=== PATIENT | female | born 1985 ===

== ENCOUNTER 2017-05-25 02:14 | Emergency (ER) | payer OTHER ==
[2017-05-25 02:27] VITALS: BP 121/58; PULSE 80; RESP 18; TEMP 98.2; O2SAT 99; BMI 25.4
[2017-05-25] MEDS ORDERED: DiphenhydrAMINE 50 mg/ml Inj IVP STA (02:27)
--- NOTE | 2017-05-25 02:35 | ED PDOC ---
HPI: Allergic Reaction Time Seen by Provider: 05/25/17 02:23 Chief Complaint (Nursing): Allergic Reaction Chief Complaint (Provider): Allergic Reaction History Per: Patient History/Exam Limitations: no limitations Onset/Duration Of Symptoms: Hrs (x9) Current Symptoms Are (Timing): Still Present Possible Cause: Food Associated Symptoms: Skin Rash. denies: Dyspnea, Chest Pain Home/EMS Treatment: Benadryl Additional Complaint(s): 31 year old female presents to ED with complaints of an allergic reaction x9 hours and has no past medical history or known allergies. Patient states she had red snapper for lunch and subsequently developed a diffuse body gene. Notes that she took 2 Benadryl (1 immediately after onset and 1 PAINTER BARREL) with no mitigation of symptoms. (-) Shortness of breath, chest pain, or abdominal pain. PCP: None Past Medical History Reviewed: Historical Data, Nursing Documentation, Vital Signs Vital Signs: Last Vital Signs Temp 98.2 F 05/25/17 02:25 Pulse 80 05/25/17 02:25 Resp 18 05/25/17 02:25 BP 121/58 L 05/25/17 02:25 Pulse Ox 99 05/25/17 02:25 - Medical History PMH: No Chronic Diseases - Surgical History Surgical History: No Surg Hx - Family History Family History: States: No Known Family Hx - Home Medications Home Medications: Ambulatory Orders Medication Instructions Recorded DiphenhydrAMINE [Benadryl] 25 mg PO PRN PRN 05/25/17 Loratadine 10 mg PO DAILY #12 tablet 05/25/17 predniSONE [predniSONE Tab] 20 mg PO DAILY #3 tab 05/25/17 - Allergies Allergies/Adverse Reactions: Allergies Allergy/AdvReac Type Severity Reaction Status Date / Time No Known Allergies Allergy Verified 05/25/17 02:25 Review of Systems ROS Statement: Except As Marked, All Systems Reviewed And Found Negative Cardiovascular: Negative for: Chest Pain Respiratory: Negative for: Shortness of Breath Gastrointestinal: Negative for: Abdominal Pain Skin: Positive for: Rash (diffuse rash) Physical Exam - Reviewed Nursing Documentation Reviewed: Yes Vital Signs Reviewed: Yes - Physical Exam Appears: Positive for: Non-toxic, No Acute Distress Skin: Positive for: Warm, Dry, Rash (diffuse urticaria on neck, chest, abdomen, back, and bilateral upper/lower extremities) Eye Exam: Positive for: Normal appearance ENT: Positive for: Normal ENT Inspection. Negative for: Tonsillar Swelling Neck: Positive for: Normal Cardiovascular/Chest: Positive for: Regular Rate, Rhythm. Negative for: Bradycardia Respiratory: Positive for: Normal Breath Sounds. Negative for: Respiratory Distress Gastrointestinal/Abdominal: Positive for: Soft. Negative for: Tenderness Extremity: Positive for: Normal ROM. Negative for: Deformity Neurologic/Psych: Positive for: Alert, Oriented. Negative for: Motor/Sensory Deficits - ECG O2 Sat by Pulse Oximetry: 99 (RA) Pulse Ox Interpretation: Normal Disposition - Clinical Impression Clinical Impression: Allergic reaction - Disposition Referrals: [facility] [Outside] Disposition Time: 03:54 Condition: STABLE Prescriptions: Loratadine 10 mg PO DAILY #12 tablet predniSONE [predniSONE Tab] 20 mg PO DAILY #3 tab Instructions: General Allergic Reaction (ED), Urticaria (GEN) Forms: [employer] (German) Medical Decision Making Medical Decision Makin Initial impression: urticaria and allergic reaction Initial plan: * Benadryl 50mg IVP * Pepcid 20mg IVP * Solumedrol 125mg IVP * Re-evaluation * * Reassess * [id number]: feeling better, rash has resolved, upon re-evaluation, patient is stable for discharge home Scribe Attestation: Documented by Angela Loera acting as a scribe for Mode Molina MD. Scribe Attestation: All medical record entries made by the Scribe were at my direction and personally dictated by me. I have reviewed the chart and agree that the record accurately reflects my personal performance of the history, physical exam, medical decision making, and the department course for this patient. I have also personally directed, reviewed, and agree with the discharge instructions and disposition.
== END 2017-05-25 04:02 | disposition home or self-care (01) ==
LOC: H.ER 02:14
DX: T78.40XA Allergy, unspecified, initial encounter (principal)
CPT/HCPCS: 96374; 96375; 99282; J1200; J2930

== ENCOUNTER 2018-09-13 23:20 | Emergency (ER) | payer OTHER ==
[2018-09-13 23:21] VITALS: BMI 25.4
[2018-09-13 23:28] VITALS: TEMP 98.4; O2SAT 100
--- NOTE | 2018-09-14 02:10 | ED PDOC ---
HPI: Female Pain Time Seen by Provider: 09/14/18 01:04 Chief Complaint (Nursing): Female Genitourinary Chief Complaint (Provider): : vaginal bleeding History Per: Patient History/Exam Limitations: no limitations Onset/Duration Of Symptoms: Hrs Current Symptoms Are (Timing): Still Present Quality Of Discomfort: "Pain" Additional Complaint(s): 33 y/o female, approximately 8 weeks gestation, presents for evaluation of vaginal bleeding x 1 day. Associated left lower abdominal pain. Denies fever, nausea/vomiting, chest pain, shortness of breath, palpitations, urinary symptoms. Abnormal Vaginal Bleeding: Yes Last Menstral Period: 07/25/18 : 2 Para: 1 Miscarriage: 0 Past Medical History Reviewed: Historical Data, Nursing Documentation, Vital Signs Vital Signs: Last Vital Signs Temp 98.4 F 09/13/18 23:26 Pulse 77 09/13/18 23:26 Resp 16 09/13/18 23:26 BP 111/67 09/13/18 23:26 Pulse Ox 100 09/13/18 23:26 - Medical History PMH: No Chronic Diseases - Surgical History Surgical History: - Family History Family History: States: No Known Family Hx - Living Arrangements Living Arrangements: With Family - Home Medications Home Medications: Ambulatory Orders Medication Instructions Recorded DiphenhydrAMINE [Benadryl] 25 mg PO PRN PRN 05/25/17 Loratadine 10 mg PO DAILY #12 tablet 05/25/17 predniSONE [predniSONE Tab] 20 mg PO DAILY #3 tab 05/25/17 - Allergies Allergies/Adverse Reactions: Allergies Allergy/AdvReac Type Severity Reaction Status Date / Time No Known Allergies Allergy Verified 09/13/18 23:25 Review of Systems ROS Statement: Except As Marked, All Systems Reviewed And Found Negative Genitourinary Female: Positive for: Vaginal Bleeding, Pelvic Pain Physical Exam - Reviewed Nursing Documentation Reviewed: Yes Vital Signs Reviewed: Yes - Physical Exam Appears: Positive for: Well, Non-toxic, No Acute Distress Head Exam: Positive for: ATRAUMATIC, NORMAL INSPECTION, NORMOCEPHALIC Skin: Positive for: Normal Color Eye Exam: Positive for: Normal appearance ENT: Positive for: Normal ENT Inspection Cardiovascular/Chest: Positive for: Regular Rate, Rhythm Respiratory: Positive for: Normal Breath Sounds Gastrointestinal/Abdominal: Positive for: Bowel Sounds, Soft, Tenderness (suprapubic, LLQ) Pelvic Exam: Positive for: External Exam Normal, No Cerv. 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 Negative for: Active Bleeding, Tender Adnexa, Tender Uterus Back: Positive for: Normal Inspection Extremity: Positive for: Normal ROM Neurologic/Psych: Positive for: Alert, Oriented (x3) - Laboratory Results Result Diagrams: 09/14/18 02:30 09/14/18 02:30 - ECG O2 Sat by Pulse Oximetry: 100 - Progress ED Course And Treament: -cbc -cmp -beta hcg -type and screen -OB TV u/s Obstetric ultrasound, transvaginal. Indication: Heavy bleeding and cramping. Technique: Transvaginal ultrasound images were obtained. Findings: Uterus measures 10x5x8 cm. Normal cervical length measuring 3.3 cm. Single, intrauterine gestation. The crown-ruponds to an estimated gestational age of 6 weeks and 4 days. Nonvisualization of the lemp length measures 6.8 mm which corresft ovary. The right ovary measures 2.9x2x2 cm. Impression: Single intrauterine gestation. Absent cardiac activity Case discussed with Dr. Mays, Ob on-call; states confirmed miscarriage, advised to call [facility] in am to move appointment closer (has appt for ) and to give return precautions Patient educated on findings, discharged with instructions to follow up with [facility] this week Patient was advised to return to ED for worsening/concerning symptoms Disposition - Clinical Impression Clinical Impression: Incomplete miscarriage - Patient ED Disposition Is Patient to be Admitted: No Counseled Patient/Family Regarding: Studies Performed, Diagnosis, Need For Followup - Disposition Disposition: Routine/Home Disposition Time: 04:23 Condition: STABLE Instructions: Miscarriage Forms: [employer] (Mauritian)
[2018-09-14 02:47] LABS: BASO % 0.4 % (0.0-2.0); EOS # 0.1 K/uL (0.0-0.7); EOS % 0.9 % (0.0-4.0); HEMOGLOBIN 11.3 g/dL (12.0-16.0); LYMPH # 3.1 K/uL (1.0-4.3); LYMPH % 32.8 % (20.0-40.0); MEAN CELL VOLUME 87.9 fl (81.0-99.0); MEAN CORPUSCULAR HEMOGLOBIN 28.6 pg (27.0-31.0); MEAN CORPUSCULAR HGB CONC 32.5 g/dL (33.0-37.0); MEAN PLATELET VOLUME 7.5 fl (7.2-11.7); MONO # 0.7 K/uL (0.0-0.8); MONO % 7.2 % (0.0-10.0); NEUT # 5.5 K/uL (1.8-7.0); NEUT % 58.7 % (50.0-75.0); RBC 3.94 Mil/uL (3.80-5.20); RED CELL DISTRIBUTION WIDTH 13.5 % (11.5-14.5); WHITE BLOOD COUNT 9.4 K/uL (4.8-10.8)
[2018-09-14 02:58] LABS: ALB/GLOB RATIO 1.3 (1.0-2.1); ALBUMIN 3.7 g/dL (3.5-5.0); ALT/SGPT 24 U/L (9-52); AST/SGOT 27 U/L (14-36); BLOOD UREA NITROGEN 8 mg/dl (7-17); CALCIUM 8.7 mg/dL (8.4-10.2); GFR NON-AFRICAN AMERICAN > 60
[2018-09-14 04:33] VITALS: BP 118/73; PULSE 79; RESP 15
--- NOTE | 2018-09-14 13:26 | US ---
Date of service: 09/14/2018 PROCEDURE: First trimester ultrasound HISTORY: ; LLQ pain, bleeding COMPARISON: None TECHNIQUE: Standard protocol for this study/examination. FINDINGS: LMP: 07/22/2018 Prior examinations from the current : None TECHNIQUE: Real-time 2D imaging, duplex and color Doppler. FINDINGS: Cardiac activity: ABSENT Measurements: Calvin rump length: 0.68 cm Gestational age based on CRL 6 weeks 4 days Gestational age below threshold based on gestational sac measurement 0.89 cm Gestational age derived from LMP: 7 weeks 5 days COLTEN based on LMP: 04/28/2019 COLTEN based on biometry: 05/06/2019 Gestational concordance apparent Yolk sac not identified Cervix: No Cervical abnormalities: Negative examination for cervical dilatation or effacement. Closed cervix measuring cm Subchorionic hemorrhage: None UTERUS: 5 x 8 x 10.0 cm. ADNEXA: Right: 2 x 2 x 2.9 cm. Normal Doppler arterial waveform documented. Left: Not visible. Fluid in the cul-de-sac: None. IMPRESSION: Six weeks 4 days intrauterine gestation. Absence of cardiac activity suggestive of demise. 1. Findings suspicious for, but not diagnostic of failure. Calvin-rump length of less than 7 mm no heartbeat. 2. Small gestational sac in relation to the size of the embryo (less than 5 mm difference between mean sac diameter and crown rump length)
== END 2018-09-14 04:33 | disposition home or self-care (01) ==
LOC: H.ER 23:20
DX: O03.4 Incomplete spontaneous abortion without complication (principal); Z3A.08 8 weeks gestation of pregnancy